=== PATIENT | female | born 1955 | race Caucasian/White ===

== ENCOUNTER 2024-08-23 23:21 | Emergency (ER) | payer MEDICARE, SELFPAY ==
[2024-08-23 23:24] VITALS: BP 130/71
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
[2024-08-23] MEDS: DECADRON 10 MG IV (23:55)
[2024-08-23] MEDS: BENADRYL 25 MG IV (23:56)
[2024-08-23 23:57] LABS: % Basophils 0.6 % (0-2); % Eosinophils 1.7 % (0-6); % Immature Granulocytes 0.2 % (0-0.5); % Lymphocytes 45.7 % (20.5-51.1); % Monocytes 8.3 % (1.7-9.3); % Neutrophils 43.5 % (42.2-75.2); Absolute Eosinophils 0.1 10^3/uL (0-0.7); Absolute Lymphocytes 2.9 10^3/uL (1.2-3.4); Absolute Monocytes 0.5 10^3/uL (0.1-0.6); Absolute Neutrophils 2.8 10^3/uL (1.4-6.5); Hematocrit 44.4 % (37.0-47.0); Mean Corp Hgb Conc. 33.8 g/dL (33.0-37.0); Mean Corpuscular Hgb 29.5 pg (27.0-31.0); Mean Corpuscular Volume 87.4 fL (81.0-99.0); Mean Platelet Volume 9.7 fL (7.4-10.4); Nucleated Red Blood Cells % 0 %; Platelet Count 350 10^3/uL (130-400); Red Blood Cell Count 5.08 10^6/uL (4.20-5.40); Red Cell Dist. Width 12.2 % (11.5-14.5); White Blood Cell Count 6.4 10^3/uL (4.8-10.8)
[2024-08-23] MEDS: REGLAN 10 MG IV (23:59)
[2024-08-24] VITALS (7 sets, daily range): BP systolic 92–134; BP diastolic 59–81; BMI 24.4
--- NOTE | 2024-08-24 00:03 | EDRN ---
Pt requesting pain medication for CHAKRABORTY, Dr. Atwood made aware.
[2024-08-24 00:06] LABS: INR 0.82; PT 11.6 Sec (11.4-14.6)
[2024-08-24 00:07] LABS: APTT 34.8 Sec (23.4-35.0)
[2024-08-24 00:08] LABS: ALT (SGPT) 16 U/L (0-35); AST (SGOT) 19 U/L (14-36); Albumin 4.4 g/dl (3.5-5.0); Alkaline Phosphatase 113 U/L (38-126); Blood Urea Nitrogen 21 mg/dl (7-17); Calcium 9.8 mg/dl (8.4-10.2); Carbon Dioxide 25 mmol/L (22-30); Chloride 102 mmol/L (98-107); Glucose 95 mg/dl (70-99); Potassium 4.4 mmol/L (3.5-5.1); Sodium 137 mmol/L (135-145); Total Bilirubin 0.4 mg/dl (0.2-1.3); Total Protein 6.5 g/dl (6.3-8.2); eGFR > 60.00
[2024-08-24 00:16] LABS: Erythrocyte Sed Rate 6 mm/hour (0-20)
--- NOTE | 2024-08-24 00:17 | EDRN ---
This RN anwsered the call light. Pt requesting pain medication for CHAKRABORTY. This RN informed patient that Dr. Atwood wants the CT results prior to pain medication. Pt informed that she was medicated with benadryl, reglan and decadron and those
medications should help lessen the headache pain. Pt verbalized understanding. Dr. Atwood made aware.
[2024-08-24 00:19] LABS: Alcohol None Detected
--- NOTE | 2024-08-24 00:35 | EDRN ---
Pt taken to CT scan.
[2024-08-24] MEDS: ATIVAN 1 MG IV ×2 (00:47→03:01)
[2024-08-24] MEDS: TORADOL 15 MG IV ×2 (01:12→02:05)
[2024-08-24] MEDS: OFIRMEV 100 IV (01:39)
[2024-08-24] MEDS: BENADRYL 25 MG IV (02:06)
[2024-08-24] MEDS: ULTRAM 50 MG PO (03:00)
[2024-08-24] MEDS: TYLENOL 650 MG PO (07:04)
== END 2024-08-24 07:05 | disposition home or self-care (01) ==
LOC: EMR 23:21
PROVIDERS: EMERGENCY PHYSICIAN Student in an Organized Health Care Education/Training Program; FAMILY PHYSICIAN Family Medicine
DX: R51.9 Headache, unspecified (principal); M54.2 Cervicalgia; G89.21 Chronic pain due to trauma; Z86.16 Personal history of COVID-19; Z86.19 Personal history of other infectious and parasitic diseases
CPT/HCPCS: 99284; 96374; 96375; 96376; 70496; 70498; 80053; 82077; 85025; 85610; 85652; 85730; 93005; Q9967

== ENCOUNTER 2025-05-08 11:46 | Emergency (ER) | payer MEDICARE, SELFPAY ==
[2025-05-08 11:52] VITALS: BP 164/83
[2025-05-08 12:49] LABS: Hematocrit 41.4 % (37.0-47.0); Hemoglobin 14.0 g/dL (12.0-16.0); Mean Corp Hgb Conc. 33.8 g/dL (33.0-37.0); Mean Corpuscular Volume 87.0 fL (81.0-99.0); Nucleated Red Blood Cells % 0 %; Platelet Count 306 10^3/uL (130-400); Red Cell Dist. Width 12.3 % (11.5-14.5)
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
[2025-05-08 13:08] LABS: ALT (SGPT) 16 U/L (0-35); AST (SGOT) 18 U/L (14-36); Albumin 4.7 g/dl (3.5-5.0); Alkaline Phosphatase 95 U/L (38-126); Blood Urea Nitrogen 15 mg/dl (7-17); Calcium 10.0 mg/dl (8.4-10.2); Carbon Dioxide 25 mmol/L (22-30); Chloride 106 mmol/L (98-107); Glucose 96 mg/dl (70-99); Potassium 4.3 mmol/L (3.5-5.1); Sodium 138 mmol/L (135-145); Total Protein 7.0 g/dl (6.3-8.2); eGFR > 60.00
[2025-05-08 13:16] LABS: Troponin I < 0.012 ng/ml
[2025-05-08 14:46] VITALS: BP 139/78
--- NOTE | 2025-05-08 14:49 | EDRN ---
Pt awaiting to be seen and discharged by MD, pt becoming increasingly more restless and anxious, states she is very uncomfortable being on the stretcher due to her past back surgery, was found dressed and seated on the chair in room. Pt requested to
have IV removed, and it was. Pt then walked out of the room, states she doesn't want to wait for paperwork and just wants to go home. Earlier, pt had her results discussed with her.
== END 2025-05-08 14:59 | disposition home or self-care (01) ==
LOC: EMR 11:46
PROVIDERS: EMERGENCY PHYSICIAN Emergency Medicine; FAMILY PHYSICIAN Family Medicine
DX: R07.9 Chest pain, unspecified (principal); I45.10 Unspecified right bundle-branch block; R03.0 Elevated blood-pressure reading, without diagnosis of hypertension; Z86.16 Personal history of COVID-19
CPT/HCPCS: 99284; 71046; 80053; 84484; 85025; 93005